=== PATIENT | female | born 1990 | race Two or more races ===

== ENCOUNTER 2017-05-23 18:54 | Emergency (ER) | payer MEDICAID ==
[~2017-05-23] VITALS: Ht 165.1 cm; Wt 142.4 kg
[2017-05-23] MEDS ORDERED: oxyCODONE HCL/Acetaminophen 5/325mg ORAL ONE (19:15)
--- NOTE | 2017-05-23 19:23 | Emergency Room Report ---
History of Present Illness General Chief Complaint: Multiple Trauma/Fall Source: Patient Present Illness HPI 26-year-old female presents to the emergency department complaining of 9 out of 10 in severity localized pain, tenderness and swelling to the right ankle and foot status post mechanical fall while stepping over a baby gait that was on some stairs. Patient states that her tan caught the gait and her right leg slipped underneath of it. Patient reports pain exacerbation upon walking or bearing weight. Patient reports swelling she denies bruising. She denies previous injury to this extremity. She denies hitting her head or loss of consciousness. Denies numbness tingling or loss of sensation or gross motor movements of the extremities, incontinence of bowel or bladder. Denies CP, Palpitations, LOC, AMS, dizziness, Changes in Vision, Sensation, paresthesias, or a sudden severe headache. Allergies: Uncoded Allergies: STEROID (Allergy, Unknown, 05/23/17) Patient History Past Medical History: see triage record Past Surgical History: none Pertinent Family History: none Last Menstrual Period: 05/21/17 Now: No Reviewed Nursing Documentation: PMH: Agreed; PSxH: Agreed Nursing Documentation-PMH Past Medical History: No History, Except For Review of Systems All Other Systems: negative except mentioned in HPI Physical Exam Vital Signs Date Time Temp Pulse Resp B/P (MAP) Pulse Ox O2 Delivery O2 Flow Rate FiO2 05/23/17 19:02 98.7 103 18 143/80 98 Room Air 98.8 Sp02 EP Interpretation: reviewed, normal General Appearance: alert, GCS 15, non-toxic, mild distress Head: normocephalic, atraumatic ENT: hearing grossly normal, normal voice Neck: full range of motion Respiratory: lungs clear, normal breath sounds, speaking full sentences Cardiovascular #1: regular rate, rhythm, normal capillary refill Musculoskeletal: back normal, normal range of motion, tender - Tenderness to the dorsal aspect of the right foot there is obvious soft tissue swelling, no obvious deformities, increased laxity of the tendons or bruises. Also some mild tenderness to palpation to the anterior left tan with some bruising noted. Neurologic: alert, oriented x3, responsive, motor strength/tone normal, sensory intact, speech normal, grossly normal Psychiatric: judgement/insight normal Skin: no rash, warm/dry, well hydrated, other - Contusion noted to the left anterior tan. Medical Decision Making PA Attestation Dr. Okeefe is my supervising Physician whom patient management has been discussed with. Diagnostic Impression: Primary Impression: Ankle sprain Qualified Codes: S93.401A - Sprain of unspecified ligament of right ankle, initial encounter Additional Impression: Contusion of skin with intact surface ER Course 26-year-old female presents to the emergency department complaining of 9 out of 10 in severity localized pain, tenderness and swelling to the right ankle and foot status post mechanical fall while stepping over a baby gait that was on some stairs. Patient states that her tan caught the gait and her right leg slipped underneath of it. Patient reports pain exacerbation upon walking or bearing weight. Patient reports swelling she denies bruising. She denies previous injury to this extremity. She denies hitting her head or loss of consciousness. Denies numbness tingling or loss of sensation or gross motor movements of the extremities, incontinence of bowel or bladder. Denies CP, Palpitations, LOC, AMS, dizziness, Changes in Vision, Sensation, paresthesias, or a sudden severe headache. Ddx considered but are not limited to Fracture, dislocation, contusion, Sprain/ Strain/Spasm. Vital signs: are WNL, pt. is afebrile H&PE are most consistent with musculoskeletal injury will perform imaging to r/ o fractures/dislocations. ORDERS: - X-ray Right Foot and Ankle ( 3 views each) - negative for fx, Dislocation, or significant soft tissue injury, per preliminary read in ED, and signed by PETER Diaz, my supervising physician has reviewed, and agrees with my interpretation. ED INTERVENTIONS: - Percocet PO - Right ankle Air-Splint applied by RN. Pt. remains neurovascularly intact. -Patient is provided with crutches and instructed on their use -I discussed the results of performed imaging. d/w pt. conservative treatment, and to follow up with a primary care provider. pt given a list of primary care clinics for follow up. d/w pt. to return to the ED with worsening or new symptoms. DISCHARGE: At this time pt. is stable for d/c to home. Will provide printed patient care instructions, and any necessary prescriptions. Care plan and follow up instructions have been discussed with the patient prior to discharge. Other X-Ray Diagnostic Results Other X-Ray Diagnostic Results #1: X-Ray ordered: Right ankle # of Views/Limited Vs Complete: 3 View Indication: Pain EP Interpretation: Yes PA Xray: Interpretation reviewed, by supervising MD, and agrees with findings. Interpretation: no dislocation, no fractures, other - Soft tissue swelling noted. Impression: Other - abnormal: Soft tissue swelling noted. Electronically Signed by: Juanita Diaz PA-C Other X-Ray Diagnostic Results #2: X-Ray ordered: Right Foot # of Views/Limited Vs Complete: 3 View Indication: Pain EP Interpretation: Yes PA Xray: Interpretation reviewed, by supervising MD, and agrees with findings. Interpretation: no dislocation, no fractures, other - Soft tissue swelling noted. Impression: Other - Abnormal: Soft tissue swelling noted. Last Vital Signs Date Time Temp Pulse Resp B/P (MAP) Pulse Ox O2 Delivery O2 Flow Rate FiO2 05/23/17 19:02 98.7 103 18 143/80 98 Room Air 98.8 Disposition: HOME, SELF-CARE Condition: Stable Scripts Ibuprofen* (MOTRIN*) 600 Mg Tablet 600 MG ORAL THREE TIMES A DAY, #30 TAB 0 Refills Prov: Juanita Diaz 05/23/17 Hydrocodone Bit/Acetaminophen 5-325* (NORCO 5-325*) 1 Each Tablet 1 TAB ORAL Q6H PRN for For Pain, #6 TAB 0 Refills Prov: Juanita Diaz 05/23/17 Patient Instructions: Ankle Sprain Additional Instructions: Take medications as directed. Follow up with a Primary Care Provider in 3-5 days, even if your symptoms have resolved. --Please review list of primary care clinics, if you do not already have a primary care provider Return sooner to ED if new symptoms occur, or current symptoms become worse. Do not drink alcohol, drive, or operate heavy machinery while taking [place] as this may cause drowsiness. - Please note that this Emergency Department Report was dictated using [employer] parts coordinator technology software, occasionally this can lead to erroneous entry secondary to interpretation by the dictation equipment. Juanita Diaz May 23, 2017 19:23
[2017-05-23 19:40] VITALS: BP 138/78
[2017-05-23] MEDS ORDERED: IBUPROFEN600 MG ORAL (20:34)
[2017-05-23] MEDS ORDERED: NORCO 5-325 TA1 EACH ORAL (20:34)
[2017-05-23 20:50] VITALS: BP 138/78
--- NOTE | 2017-05-24 08:43 | Diagnostic Imaging Report ---
Indication: Reason For Exam: PAIN Technique: 3 views right foot Comparison: none Findings: There is hallux valgus and metatarsus adductus. No acute fractures. No dislocations. The joint spaces are preserved Impression: No acute bony trauma
--- NOTE | 2017-05-24 08:44 | Diagnostic Imaging Report ---
Indication: Ankle pain Technique: 3 views of the right ankle Comparison: none Findings: No acute fractures. No dislocations. Joint spaces are preserved. Normal mineralization. No radiopaque foreign body. Impression: Negative
== END 2017-05-23 20:50 | disposition home or self-care (01) ==
LOC: EMR 19:23
DX: S93.401A Sprain of unspecified ligament of right ankle, initial encounter (principal); S80.11XA Contusion of right lower leg, initial encounter; W19.XXXA Unspecified fall, initial encounter; Y92.9 Unspecified place or not applicable; Z88.8 Allergy status to other drugs, medicaments and biological substances
CPT/HCPCS: 99284

== ENCOUNTER 2018-08-08 19:59 | Emergency (ER) | payer MEDICAID ==
[~2018-08-08] VITALS: Ht 165.1 cm; Wt 163.3 kg
[~2018-08-08 19:59] MED LIST: IBUPROFEN600 MG ORAL; NORCO 5-325 TA1 EACH ORAL
[2018-08-08 20:18] VITALS: BP 125/87
--- NOTE | 2018-08-08 20:22 | NUR ---
ED Nurse Note: Patient walked in to ER c/o bruise on her left thigh. Per patient she has varicose veins, and she is thinking it is blood clot. AAO x4, VSS at this time, skin is dry, warm to touch.
[2018-08-08 21:05] VITALS: BP 125/87
--- NOTE | 2018-08-08 21:06 | NUR ---
ER DISCHARGE NOTE: Patient is cleared to be discharged per ERMD, pt is aox4, on room air, with stable vital signs. pt was given dc and prescription instructions, pt was able to verbalize understanding, pt id band removed. pt is able to ambulate with steady gait. pt took all belongings.
--- NOTE | 2018-08-10 06:44 | Emergency Room Report ---
History of Present Illness General Chief Complaint: General Complaint Source: Patient Present Illness HPI 27-year-old female resents ED for evaluation. Patient walked in for evaluation of pain and discoloration to left thigh. Noticed it this morning. Patient denies any fall or injury. Patient called nursing line from her insurance company and was told to come to the ER because it might be a blood clot. Patient denies any calf pain or swelling. Pain is dull, 5 out of 10, nonradiating. Patient does note history of varicose veins. Denies chest pain or shortness of breath. No other aggravating relieving factors. Denies any other associated symptoms Allergies: Coded Allergies: APPLE (Verified Allergy, Unknown, 08/08/18) BLACK [place] (Verified Allergy, Unknown, 08/08/18) Coffee (Verified Allergy, Unknown, 08/08/18) Dairy (Verified Allergy, Unknown, 08/08/18) Egg Yolk (Verified Allergy, Unknown, 08/08/18) Halibut (Verified Allergy, Unknown, 08/08/18) LEMON (Verified Allergy, Unknown, 08/08/18) Lettuce (Verified Allergy, Unknown, 08/08/18) MILK (Verified Allergy, Unknown, 08/08/18) PEANUT (Verified Allergy, Unknown, 08/08/18) Pork (Verified Allergy, Unknown, 08/08/18) [place] (Verified Allergy, Unknown, 08/08/18) Uncoded Allergies: OATMEAL (Allergy, Unknown, 08/08/18) STEROIDS (Allergy, Unknown, 08/08/18) Patient History Past Medical History: none Past Surgical History: none Pertinent Family History: none Social History: Denies: smoking, alcohol use, drug use Last Menstrual Period: 03/2018 Now: No : 3 Para: 3 Immunizations: UTD Reviewed Nursing Documentation: PMH: Agreed; PSxH: Agreed Nursing Documentation-PMH Past Medical History: No History, Except For Hx Cardiac Problems: Yes - palpitations, heart murmur Review of Systems All Other Systems: negative except mentioned in HPI Physical Exam Vital Signs Date Time Temp Pulse Resp B/P (MAP) Pulse Ox O2 Delivery O2 Flow Rate FiO2 08/08/18 20:05 98.8 103 18 125/87 (100) 95 Room Air Sp02 EP Interpretation: reviewed, normal General Appearance: no apparent distress, alert, GCS 15, non-toxic, obese Head: normocephalic Eyes: bilateral eye normal inspection, bilateral eye PERRL ENT: normal ENT inspection Neck: normal inspection Respiratory: normal inspection Cardiovascular #1: normal inspection Gastrointestinal: normal inspection Rectal: deferred Genitourinary: no CVA tenderness Musculoskeletal: normal range of motion, non-tender, no calf tenderness Neurologic: alert, oriented x3, responsive, motor strength/tone normal, sensory intact, speech normal Psychiatric: normal inspection Skin: other - 4x2 cm area of bruising to distal L thigh. no swelling. no fluctance. no crepitus Lymphatic: normal inspection Medical Decision Making Diagnostic Impression: Primary Impression: Leg pain Qualified Codes: M79.605 - Pain in left leg Additional Impression: Varicose veins of both lower extremities Qualified Codes: I83.813 - Varicose veins of bilateral lower extremities with pain ER Course Hospital Course 27 yo F presents to ED c/o pain/bruising to L thigh. concerned about DVT Differential diagnoses include: DVT, cellulitis, contusion, abscess Clinical course Patient placed on stretcher. Initial history, physical exam reveals obese female in no acute distress. On exam there is a area of bruising to the left distal thigh. No calf tenderness. No calf swelling. No crepitus. Patient does have evidence of varicose veins extensively to both legs. Likely related to her varicose veins. I have no suspicion for DVT. I explained to the patient that her superficial bruising to the distal thigh is not indicative of a DVT. Given that she has no calf tenderness or calf swelling I do not believe she has a DVT. However for reassurance I did offer her an ultrasound which she declined. I explained that if she would like to fix her varicose veins she would have to follow-up with her PMD for outpatient referral to vascular surgeon. States she will follow-up with her PMD. Safe for discharge for close outpatient follow-up I. I feel this is a highly complex case requiring extensive working including EKG/Rhythm strip, Xray/CT/US, Blood/urine lab work, repeat exams while in ED, and administration of strong opiates/narcotics for pain control, admission to hospital or close patient follow up. Diagnosis - leg pain, varicose of veins of both lower extremities Stable and discharged to home. Followup with PMD. Return to ED if symptoms recur or worsen Last Vital Signs Date Time Temp Pulse Resp B/P (MAP) Pulse Ox O2 Delivery O2 Flow Rate FiO2 08/08/18 21:05 98.8 18 125/87 95 Room Air 08/08/18 20:18 103 Status: improved Disposition: HOME, SELF-CARE Condition: Stable Referrals: [facility]ERR[facility] (PCP) Patient Instructions: Varicose Veins Bjorn Webber MD Aug 10, 2018 06:44
== END 2018-08-08 21:00 | disposition home or self-care (01) ==
LOC: EMR 20:50
DX: M79.605 Pain in left leg (principal); I83.813 Varicose veins of bilateral lower extremities with pain; Z91.011 Allergy to milk products; Z91.010 Allergy to peanuts; Z91.013 Allergy to seafood; Z91.018 Allergy to other foods; Z91.09 Other allergy status, other than to drugs and biological substances; E66.9 Obesity, unspecified; Z68.43 Body mass index [BMI] 50.0-59.9, adult
CPT/HCPCS: 99282